=== PATIENT | male | born 1955 | race Caucasian/White ===

== ENCOUNTER 2018-06-09 13:27 | Outpatient (CLI) | payer BC ==
--- NOTE | 2018-06-09 15:28 | RAD ---
LUMBAR SPINE RADIOGRAPH SERIES THREE VIEWS: COMPARISON: Reference made to 09/06/2015 radiograph series. FINDINGS: Redemonstration of a moderate to severe anterior L2 compression fracture. Subtle patchy sclerosis of T12 is redemonstrated. No new compression fracture. There is posterior fusion spanning the lower l umbar through sacral spine. Mild dextroscoliosis is seen at the upper lumbar spine. IMPRESSION: 1. Moderate to severe anterior wedge compression fracture of L2 is redemonstrated. 2. Stable patchy sclerosis of T12, which, again, may relate to a metastatic process, in light of the patient's history. POS: [facility]
== END 2018-06-09 13:28 | disposition home or self-care (01) ==
LOC: BURRAD 13:27
PROVIDERS: ATTEND Family Medicine
DX: M54.41 Lumbago with sciatica, right side (principal); M54.42 Lumbago with sciatica, left side; M48.56XA Collapsed vertebra, not elsewhere classified, lumbar region, initial encounter for fracture
CPT/HCPCS: 72100